=== PATIENT | female | born 1970 | race Two or more races ===

== ENCOUNTER 2024-04-21 06:16 | Emergency (ER) | payer MEDICAID ==
[~2024-04-21] VITALS: Ht 154.9 cm; Wt 82.0 kg
[2024-04-21] MEDS ORDERED: BACL10TA PO (08:00)
[2024-04-21] MEDS ORDERED: PRED20TA2 PO (08:00)
[2024-04-21] MEDS: HYDROcodone-ACET 5/325MG TAB PO ONE (08:04)
[2024-04-21] MEDS: KETOROLAC TROMETH 60MG/2ML VIAL IM ONE (08:05)
[2024-04-21 08:14] VITALS: BP 132/78; PULSE 76; RESP 17; TEMP 98.4; O2SAT 97
== END 2024-04-21 08:16 | disposition home or self-care (01) ==
LOC: ER 06:16
DX: M50.121 Cervical disc disorder at C4-C5 level with radiculopathy (principal); M50.123 Cervical disc disorder at C6-C7 level with radiculopathy; Z98.890 Other specified postprocedural states; Z88.5 Allergy status to narcotic agent; Z79.899 Other long term (current) drug therapy
CPT/HCPCS: 72040; 93005; 96372; 99283; J1885

== ENCOUNTER 2024-06-05 11:51 | Inpatient (IN) | payer MEDICAID, OTHER ==
[~2024-06-05] VITALS: Ht 154.9 cm; Wt 81.0 kg
[~2024-06-05 11:51] MED LIST: BACL10TA PO; PRED20TA2 PO
[2024-06-05] MEDS: ASPirin 325 MG TAB PO ONE (12:49)
[2024-06-05] MEDS: NITROGLYCERIN 0.4 MG SL TAB SL ONE (12:50)
[2024-06-05 13:13] LABS: Basophils # (auto) 0 10 ^3/uL (0-0.2); Basophils % (auto) 0.2 % (0.0-2.0); Eosinophils # (auto) 0 10 ^3/uL (0-0.8); Eosinophils % (auto) 0.5 % (0.0-7.0); Hemoglobin 15.6 g/dL (12.2-16.2); Lymphocytes # (auto) 1.5 10 ^3/uL (0.4-5.4); Lymphocytes % (auto) 20.6 % (10.0-50.0); Mean Corpuscular Hemoglobin 29.7 pg (28.0-32.0); Mean Corpuscular Hgb Conc. 35.6 g/dL (32.0-36.0); Mean Corpuscular Volume 83.6 fL (80.0-100.0); Monocytes # (auto) 0.3 10 ^3/uL (0-1.3); Monocytes % (auto) 4.2 % (0.0-12.0); Neutrophils # (auto) 5.4 10 ^3/uL (1.6-8.6); Neutrophils % (auto) 74.5 % (37.0-80.0); Nucleated Red Blood Cells % 1.7 %; Platelet Count (auto) 350 10^3/uL (140-450); Red Blood Cells 5.26 10^6/uL (4.0-5.20); Red Cell Distribution Width 13.6 % (11.8-14.3); White Blood Cell 7.3 10^3/uL (4.4-10.8)
[2024-06-05 13:31] LABS: Alanine Aminotransferase 24 U/L (7-40); Albumin 5.2 g/dL (3.2-4.8); Alkaline Phosphatase 121 U/L (46-116); Anion Gap 10 (5-15); Aspartate Aminotransferase 20 U/L (13-40); BUN/Creatinine Ratio 13.8 (10.0-20.0); Blood Urea Nitrogen 9 mg/dL (9-23); Calcium 10.2 mg/dL (8.7-10.4); Carbon Dioxide 23 mmol/L (20-30); Chloride 108 mmol/L (98-107); Glucose 112 mg/dL (74-106); Potassium 3.3 mmol/L (3.5-5.1); Sodium 141 mmol/L (136-145)
[2024-06-05 13:32] LABS: Bilirubin, Total 0.8 mg/dL (0.2-1.0); Total Protein 8.1 g/dL (5.7-8.2)
[2024-06-05 13:44] LABS: INR 1.04 (0.9-1.15); Partial Thromboplastin Time 27.8 SEC (24.5-34.5)
[2024-06-05 14:14] LABS: Urine Bacteria FEW /hpf (None Seen); Urine Blood Negative /uL (Negative); Urine Clarity Clear (Clear); Urine Color Colorless (Yellow); Urine Protein, UAD Negative (Negative); Urine Specific Gravity 1.003 (1.001-1.035); Urine Urobilinogen Normal (Negative); Urine WBC <1 /hpf (0 - 5)
[2024-06-05] MEDS ORDERED: DEXTROSE (50%) 50ML SYRG IV PRN (15:45)
[2024-06-05] MEDS ORDERED: NITROGLYCERIN 0.4 MG SL TAB SL PRN (15:45)
[2024-06-05] MEDS ORDERED: MORPHINE SULFATE INJ 2 MG/ml SYRG IV PRN (15:45)
[2024-06-05] MEDS ORDERED: DOCUSATE SOD 100 MG CAP PO PRN (15:45)
[2024-06-05] MEDS: POTASSIUM CHL 20 Meq TABLET PO ONE (16:14)
[2024-06-05] MEDS: ACCU-CHEK COMFORT CURVE STRIP VI SCH (17:00)
[2024-06-05] MEDS: InsuLIN REG 1unit/0.01ml Soln (100units/ml) SC SCH ×2 (18:02→21:48)
[2024-06-05 18:19] VITALS: RESP 16; O2SAT 98
[2024-06-05] MEDS: ONDANSETRON HCL 4 MG/2 ML VIAL IV PRN (18:23)
[2024-06-05] MEDS: SODIUM CHLOR 0.9% PF (SALINE LOCK) 10ML VIAL/SYR IV SCH (21:48)
[2024-06-05] MEDS: ATORVASTATIN 20 MG TAB PO SCH (21:50)
[2024-06-05] MEDS: ACETAMINOPHEN 325 MG TAB PO PRN (22:33)
[2024-06-05 22:48] VITALS: BP 109/57; PULSE 61; RESP 18; TEMP 97.8; O2SAT 99
[2024-06-05 22:51] VITALS: BP_SYST 105; BP_SYST 109; BP_DIAS 48; BP_DIAS 57; PULSE 60; PULSE 61; RESP 14; RESP 18; TEMP 97.4; TEMP 97.8; O2SAT 99
[2024-06-06] VITALS (8 sets, daily range): BP systolic 111–125; BP diastolic 55–74; PULSE 50–69; RESP 14–18; TEMP 97.6–98.1; O2SAT 97–99
[2024-06-06] MEDS ORDERED: HYDR-4069 PO (00:28)
[2024-06-06] MEDS ORDERED: FURO40TA4 PO (00:28)
[2024-06-06] MEDS ORDERED: CHOL20007 OR ×2 (00:28)
[2024-06-06] MEDS ORDERED: ATOR-47 PO (00:28)
[2024-06-06] MEDS ORDERED: METF-370 PO (00:28)
[2024-06-06] MEDS ORDERED: ASPI-543 PO (00:28)
[2024-06-06 06:04] LABS: Basophils # (auto) 0 10 ^3/uL (0-0.2); Basophils % (auto) 0.3 % (0.0-2.0); Eosinophils # (auto) 0.1 10 ^3/uL (0-0.8); Eosinophils % (auto) 1.8 % (0.0-7.0); Hemoglobin 13.7 g/dL (12.2-16.2); Lymphocytes # (auto) 2.1 10 ^3/uL (0.4-5.4); Lymphocytes % (auto) 27.9 % (10.0-50.0); Mean Corpuscular Hemoglobin 29.6 pg (28.0-32.0); Mean Corpuscular Hgb Conc. 35.1 g/dL (32.0-36.0); Mean Corpuscular Volume 84.4 fL (80.0-100.0); Monocytes # (auto) 0.6 10 ^3/uL (0-1.3); Monocytes % (auto) 7.3 % (0.0-12.0); Neutrophils # (auto) 4.7 10 ^3/uL (1.6-8.6); Neutrophils % (auto) 62.7 % (37.0-80.0); Platelet Count (auto) 297 10^3/uL (140-450); Red Blood Cells 4.62 10^6/uL (4.0-5.20); Red Cell Distribution Width 13.3 % (11.8-14.3); White Blood Cell 7.6 10^3/uL (4.4-10.8)
[2024-06-06 06:31] LABS: Alanine Aminotransferase 18 U/L (7-40); Albumin 4.4 g/dL (3.2-4.8); Alkaline Phosphatase 99 U/L (46-116); Anion Gap 8 (5-15); BUN/Creatinine Ratio 21.9 (10.0-20.0); Blood Urea Nitrogen 16 mg/dL (9-23); Calcium 9.5 mg/dL (8.7-10.4); Carbon Dioxide 27 mmol/L (20-30); Chloride 107 mmol/L (98-107); Glucose 100 mg/dL (74-106); Potassium 3.3 mmol/L (3.5-5.1); Sodium 142 mmol/L (136-145)
[2024-06-06 06:32] LABS: Aspartate Aminotransferase 14 U/L (13-40); Bilirubin, Total 0.7 mg/dL (0.2-1.0); Total Protein 6.8 g/dL (5.7-8.2)
[2024-06-06] MEDS: ASPirin 81 mg TAB PO SCH (08:41)
[2024-06-06] MEDS: POTASSIUM CHL 20 Meq TABLET PO ONE (08:41)
[2024-06-06 13:10] LABS: Cholesterol 196 mg/dL (< 200); HDL Cholesterol 57 mg/dL (40-59)
[2024-06-06 13:11] LABS: Triglycerides 130 mg/dL (< 150)
[2024-06-06 13:12] LABS: LDL Cholesterol 125 mg/dL (< 100)
[2024-06-06] MEDS: ENOXAPARIN SOD 40 MG/0.4 ML SYRINGE SC SCH (15:56)
[2024-06-06] MEDS: ERGOCALCIFEROL 50,000 UNIT(1.25MG) CAP PO SCH (15:56)
[2024-06-06] MEDS: INSULIN LANTUS (GLARGINE) 1 /0.01ml (100units/ml) SC SCH (21:21)
[2024-06-06 21:57] LABS: COVID19 ANTIGEN SOFIA FIA NEGATIVE (NEGATIVE); Rapid Influenza A Negative (Negative); Rapid Influenza B Negative (Negative)
[2024-06-07] VITALS (13 sets, daily range): BP systolic 104–133; BP diastolic 52–71; PULSE 53–62; RESP 16–18; TEMP 36.8; O2SAT 96–99
[2024-06-07 07:19] LABS: Basophils # (auto) 0 10 ^3/uL (0-0.2); Basophils % (auto) 0.4 % (0.0-2.0); Eosinophils # (auto) 0.2 10 ^3/uL (0-0.8); Eosinophils % (auto) 2.8 % (0.0-7.0); Hematocrit 39.3 % (36.0-46.0); Hemoglobin 13.5 g/dL (12.2-16.2); Lymphocytes % (auto) 37.4 % (10.0-50.0); Mean Corpuscular Hemoglobin 30.1 pg (28.0-32.0); Mean Corpuscular Hgb Conc. 34.3 g/dL (32.0-36.0); Mean Corpuscular Volume 87.6 fL (80.0-100.0); Monocytes # (auto) 0.6 10 ^3/uL (0-1.3); Monocytes % (auto) 7.8 % (0.0-12.0); Neutrophils # (auto) 4.1 10 ^3/uL (1.6-8.6); Neutrophils % (auto) 51.6 % (37.0-80.0); Nucleated Red Blood Cells % 0.2 %; Platelet Count (auto) 278 10^3/uL (140-450); Red Blood Cells 4.48 10^6/uL (4.0-5.20); White Blood Cell 7.9 10^3/uL (4.4-10.8)
[2024-06-07 07:22] LABS: Anion Gap 8 (5-15); Calcium 9.1 mg/dL (8.7-10.4); Carbon Dioxide 23 mmol/L (20-30); Chloride 106 mmol/L (98-107); Potassium 4.2 mmol/L (3.5-5.1); Sodium 137 mmol/L (136-145)
[2024-06-07 07:28] LABS: BUN/Creatinine Ratio 11.9 (10.0-20.0); Blood Urea Nitrogen 8 mg/dL (9-23); Glucose 91 mg/dL (74-106)
[2024-06-07] MEDS: HEPARIN IN NS 1000Units/500mL 1,500 ML ONE ×2 (07:29→08:49)
[2024-06-07] MEDS: IODIXANOL 320MG/ML 100ML BTL IV ONE ×2 (07:29→09:03)
[2024-06-07] MEDS: LIDOCAINE 2%HCL (LOCAL ANESTH.) INJ 10ml MDV ONE (08:49)
[2024-06-07] MEDS: IOHEXOL 350 MG/ML 100ML IJ ONE (08:49)
[2024-06-07] MEDS: VERAPAMIL 2.5MG/ML INJ 2ML VIAL IV ONE (08:59)
[2024-06-07] MEDS: ANGIOMAX 250 MG VIAL IV ONE (08:59)
[2024-06-07] MEDS: fentaNYL CITRATE 100 MCG/2 ML VL ONE (08:59)
[2024-06-07] MEDS: MIDAZOLAM HCL 2MG/2ML 2ml VIAL (1mg/ml) ONE (08:59)
[2024-06-07] MEDS: LIDOCAINE 2%HCL (LOCAL ANESTH.) INJ 20ML MDV ONE (09:00)
[2024-06-07] MEDS: SODIUM CHL 0.9% 0 ML ONE (09:00)
[2024-06-07] MEDS: HEPARIN SODIUM (PORCINE) 5000 UNITS/ML 1ML VIAL ONE (09:04)
[2024-06-07] MEDS: MORPHINE SULFATE INJ 2 MG/ml SYRG IV PRN (13:34)
== END 2024-06-07 16:37 | disposition home or self-care (01) | DRG 191 ==
LOC: ER 11:51 → TELE 15:42 → TELE-CENTR 22:48
PROVIDERS: ADMIT Internal Medicine Pulmonary Disease; ATTEND Internal Medicine Pulmonary Disease
PROC: 4A023N7 Measurement of Cardiac Sampling and Pressure, Left Heart, Percutaneous Approach (ICD-10-PCS; principal; 2024-06-07)
PROC: B211YZZ Fluoroscopy of Multiple Coronary Arteries using Other Contrast (ICD-10-PCS; 2024-06-07)
DX: I25.10 Atherosclerotic heart disease of native coronary artery without angina pectoris (principal); E11.9 Type 2 diabetes mellitus without complications; E55.9 Vitamin D deficiency, unspecified; E66.9 Obesity, unspecified; E78.5 Hyperlipidemia, unspecified; E87.6 Hypokalemia; I10 Essential (primary) hypertension; I25.2 Old myocardial infarction; Z90.710 Acquired absence of both cervix and uterus; Z82.49 Family history of ischemic heart disease and other diseases of the circulatory system; Z98.61 Coronary angioplasty status; Z79.899 Other long term (current) drug therapy; Z79.4 Long term (current) use of insulin; Z68.33 Body mass index [BMI] 33.0-33.9, adult
CPT/HCPCS: 36415; 71045; 80048; 80053; 80061; 81001; 82306; 82607; 82962; 83036; 83735; 83880; 84443; 84484; 85025; 85610; 85730; 86803; 87340; 87426; 87804; 93005; 93306; 99291; G0378; J1815; J2001; J2250; J2405; Q9967

== ENCOUNTER 2024-10-17 08:45 | Emergency (ER) | payer OTHER ==
[~2024-10-17] VITALS: Ht 154.9 cm; Wt 72.7 kg
[~2024-10-17 08:45] MED LIST changes: +ASPI-543 PO; +ATOR-47 PO; -BACL10TA PO; +CHOL20007 OR; +FURO40TA4 PO; +HYDR-4069 PO; +METF-370 PO; -PRED20TA2 PO
[2024-10-17] MEDS ORDERED: METH-1182 PO (09:37)
--- NOTE | 2024-10-17 09:37 | ED.PDOC ---
Back pain HPI HPI Comments 54-year-old female patient presents to the emergency room for lower back pain. Patient reports history of back pain with disc compression. Patient recently an MRI performed for primary care physician. Patient states that yesterday when she was getting up from breakfast she felt a pull in the lower back. Patient states that she has tenderness across the lower back as well as numbness and tingling down the right leg. Patient is able to ambulate. Patient denies loss of bowel or bladder control. Currently has [place] at home for pain. Patient took a [place] last night to help with pain. Chief Complaint: Back Pain Time Seen by MD: 09:01 Reviewed Notes: Nurses Notes, Medications Allergies: Coded Allergies: Codeine (Verified Allergy, Unknown, 04/21/24) Home Meds Active Scripts Ibuprofen (Ibuprofen) 600 Mg Tab, 1 TAB PO TID PRN for 30 Days, #90 TAB 0 Refills Prov:MARCOS JULIO [facility] 10/17/24 Methocarbamol (Methocarbamol) 750 Mg Tab, 750 MG PO Q8HP PRN for 30 Days, #90 TAB 0 Refills Prov:MARCOS JULIO [facility] 10/17/24 Reported Medications Cholecalciferol (VITAMIN D3) 2,000 Unit Tab, 5000 UNIT OR QWEEKLY, TAB 06/06/24 Cholecalciferol (VITAMIN D3) 2,000 Unit Tab, 5000 UNIT OR, TAB 06/06/24 Hydrocodone-Acetaminophen (Hydrocodone/Acetaminophen 7.5-325 mg) 1 Tab Tab, 1 TAB PO TID, TAB 06/06/24 Furosemide (Furosemide) 40 Mg Tab, 40 MG PO DAILY for 30 Days 06/06/24 Atorvastatin Calcium (ATORVASTATIN CALCIUM) 80 Mg Tab, 80 MG PO DAILY, TAB 06/06/24 Aspirin (Aspir-Low) 81 Mg Tab, 81 MG PO DAILY for 30 Days, MG 06/06/24 Metformin Hydrochloride (Metformin Hcl) 500 Mg Tab, 500 MG PO IBID for 30 Days, MG 06/06/24 Information Source: Patient Mode of Arrival: Wheelchair Past Medical History PAST MEDICAL HISTORY: DM, High Lipids, [place] Surgical History: Denies all surgeries COMPLIANCE PROFESSIONAL History: No Pertinent COMPLIANCE PROFESSIONAL History Family History Family History: Reviewed,noncontributory to illness Social History Smoker: Non-Smoker Alcohol: Denies ETOH Use Drugs: Denies Drug Use Lives In: Home Constitutional: denies: chills, diaphoresis, fatigue, fever, malaise, sweats, weakness, others EENTM: denies: blurred vision, double vision, ear bleeding, ear discharge, ear drainage, ear pain, ear ringing, eye pain, eye redness, hearing loss, mouth pain, mouth swelling, nasal discharge, nose bleeding, nose congestion, nose pain, photophobia, tearing, throat pain, throat swelling, voice changes, others Respiratory: denies: cough, hemoptysis, orthopnea, SOB at rest, shortness of breath, SOB with excertion, stridor, wheezing, others Cardiovascular: denies: chest pain, dizzy spells, diaphoresis, Dyspnea on exertion, edema, irregular heart beat, left arm pain, lightheadedness, palpitations, PND, syncope, others Gastrointestinal: denies: abdomen distended, abdominal pain, blood streaked bowels, constipated, diarrhea, dysphagia, difficulty swallowing, hematemesis, melena, nausea, poor appetite, poor fluid intake, rectal bleeding, rectal pain, vomiting, others Genitourinary: denies: abnormal vagina bleeding, burning, dyspareunia, dysuria, flank pain, frequency, hematuria, incontinence, pain, , vagina dischar ge, urgency, others Neurological: denies: dizziness, fainting, headache, left sided numbness, left sided weakness, numbness, paresthesia, pre-existing deficit, right sided numbness, right sided weakness, seizure, speech problems, tingling, tremors, weakness, others Musculoskeletal: reports: back pain (lower back pain) Integumetry: denies: bruises, change in color, change in hair/nails, dryness, laceration, lesions, lumps, rash, wounds, others Allergic/Immunocompromised: denies: Difficulty Healing, Frequent Infections, Hives, Itching, others Hematologic/Lymphatic: denies: anemia, blood clots, easy bleeding, easy bruising, swollen glands, others Endocrine: denies: excessive hunger, excessive sweating, excessive thirst, excessive urination, flushing, intolerance to cold, intolerance to heat, unexplained weight gain, unexplained weight loss, others Psychiatric: denies: anxiety, bipolar disorder, depression, hopeless, panic disorder, schizophrenia, sleepless, suicidal, others All Other Systems: Reviewed and Negative Physical Exam General Appearance: No Apparent Distress, Normal HEENT: Normal ENT Inspection, Pharynx Normal, TMs Normal Neck: Full Range of Motion, Non-Tender, Normal, Normal Inspection Respiratory: Chest Non-Tender, Lungs Clear, No Accessory Muscle Use, No Respiratory Distress, Normal Breath Sounds Cardiovascular: No Edema, No JVD, No Murmur, No Gallop, Normal Peripheral Pulses, Regular Rate/Rhythm Breast Exam: Deferred Gastrointestinal: No Organomegaly, Non Tender, No Pulsatile Mass, Normal Bowel Sounds, Soft Genitalia: Deferred Pelvic: Deferred Rectal: Deferred Extremities: No calf tenderness, Normal capillary refill, Normal inspection, Normal range of motion, Non-tender, No pedal edema Musculoskeletal : Location: Bilateral Extremity Location: Back (lower back pain radiating down the right leg. ) Apperance: Normal Neurologic: Alert, supervisor lace tearing II-XII nml as Tested, No Motor Deficits, Normal Affect, Normal Mood, No Sensory Deficits Cerebellar Function: Normal Reflexes: Normal Skin: Dry, Normal Color, Warm Lymphatic: No Adenopathy Was a procedure done? Was a procedure done?: No Back Pain Differential Dx Differential Diagnosis: Musculoskeletal Pain, Strain Other Differential Diagnosis lower back pain, back strain, sciatica X-Ray, Labs, Meds, VS Vital Signs Date Time Temp Pulse Resp B/P (MAP) Pulse Ox O2 Delivery O2 Flow Rate FiO2 10/17/24 09:46 97.7 100 16 130/86 (101) 98 97.7 10/17/24 08:50 97.7 100 16 130/86 (101) 98 Current Medications Medications (Trade) Dose Ordered Sig/Heather Route Start Time Stop Time Status Last Admin Ketorolac Tromethamine (Toradol Injection) 60 mg ONCE ONCE IM 10/17/24 09:45 10/17/24 09:46 DC 10/17/24 09:49 Methylprednisolone Sodium Succinate (Solu Medrol) 125 mg ONCE ONCE IM 10/17/24 09:45 10/17/24 09:46 DC 10/17/24 09:50 X-Ray, Labs, Meds, VS Comment On re-evaluation patient has symptomatic improvement. Patient is stable for discharge at this time. All test results and diagnostic imaging have been interpreted. All diagnostic findings, discharge care, and education instruction provided to the patient. Follow-up with PCP in 2-3 days Patient verbalized understanding, discharge instructions and agrees to treatment plan Vital signs are stable Patient is ambulatory Patient advised of which symptoms necessitate a return visit to the emergency room. Patient to return emergency room for any new worsening symptoms. Patient is aware that the purpose of this visit is for an acute medical emergency requiring emergent stabilization. Chronic conditions, including malignancies have not been ruled out. Patient is instructed to follow up with PCP as directed for continued care and workup. If unable to arrange follow up, patient is to return to the emergency room for reassessment. Patient was given verbal and written discharge instructions and acknowledges understanding Time of 1ST Reevaluation: :57 Reevaluation 1ST: Improved Patient Education/Counseling: Diagnosis, Treatment, Prognosis Family Education/Counseling: No Family Present Departure 1 Departure Time of Disposition: : Impression: Primary Impression: Back pain of lumbar region with sciatica Disposition: HOME / SELF CARE / HOMELESS Condition: Stable e-Prescriptions Ibuprofen (Ibuprofen) 600 Mg Tab 1 TAB PO TID PRN for 30 Days, #90 TAB 0 Refills Prov: MARCOS JULIO [facility] 10/17/24 Methocarbamol (Methocarbamol) 750 Mg Tab 750 MG PO Q8HP PRN for 30 Days, #90 TAB 0 Refills Prov: MARCOS JULIO 10/17/24 Discharged With: Self Critical Care Note Critical Care Time?: No Stability Stability form required: No Heart Score Heart Score: Heart Score Response (Comments) Value History N/A 0 EKG N/A 0 Age N/A 0 Risk Factors N/A 0 Troponin N/A 0 Total 0 MARCOS JULIO Oct 17, 2024 09:37
[2024-10-17] MEDS ORDERED: IBUP-1454 PO (09:42)
[2024-10-17 09:46] VITALS: BP 130/86; PULSE 100; RESP 16; TEMP 97.7; O2SAT 98
[2024-10-17] MEDS: KETOROLAC TROMETH 60MG/2ML VIAL IM ONE (09:49)
[2024-10-17] MEDS: methylPREDNISolone SOD SUCC 125 MG/2 ML VL IM ONE (09:50)
== END 2024-10-17 10:04 | disposition home or self-care (01) ==
LOC: ER 08:45
DX: M54.40 Lumbago with sciatica, unspecified side (principal); E11.9 Type 2 diabetes mellitus without complications; I10 Essential (primary) hypertension; E78.5 Hyperlipidemia, unspecified; Z88.5 Allergy status to narcotic agent; Z79.899 Other long term (current) drug therapy; Z79.82 Long term (current) use of aspirin
CPT/HCPCS: 96372; 99284; J1885; J2919

== ENCOUNTER 2025-09-03 15:06 | Emergency (ER) | payer OTHER ==
[~2025-09-03] VITALS: Ht 154.9 cm; Wt 72.9 kg
[~2025-09-03 15:06] MED LIST changes: +IBUP-1454 PO; +METH-1182 PO
[2025-09-03] MEDS ORDERED: methylPREDNISolone SOD SUCC 125 MG/2 ML VL IV ONE (16:00)
[2025-09-03] MEDS ORDERED: KETOROLAC TROMETH 30 MG/ML 1ML VIAL IV ONE (16:00)
[2025-09-03] MEDS: methylPREDNISolone SOD SUCC 125 MG/2 ML VL IM ONE (16:18)
[2025-09-03] MEDS: KETOROLAC TROMETH 60MG/2ML VIAL IM ONE (16:19)
[2025-09-03] MEDS ORDERED: CYCL-839 PO (16:22)
--- NOTE | 2025-09-03 16:23 | ED.PDOC ---
Back pain HPI HPI Comments Patient reports significant history of back complications. States she had spinal fusion of the lumbar spine in 2010. States she was getting out of bed today when she twisted and felt a sharp pain in the lower back. States he has been having bilateral sciatica type pain. States she can not move to the pain. She took a [place] 10 at home did not really help much. Says she does have spinal specialist in [facility], she also has pain management she sees up here. Denies any loss of bladder or bowel control no saddle paresthesia. No urinary discomfort. Patient denies any heavy lifting or excessive walking yesterday of the days prior. Chief Complaint: Back Pain Time Seen by MD: 15:31 Reviewed Notes: Nurses Notes Allergies: Coded Allergies: Codeine (Verified Allergy, Unknown, 04/21/24) Home Meds Active Scripts Ibuprofen (Ibuprofen) 600 Mg Tab, 1 TAB PO TID PRN for 30 Days, #90 TAB 0 Refills Prov:MARCOS JULIO [employer] 10/17/24 Methocarbamol (Methocarbamol) 750 Mg Tab, 750 MG PO Q8HP PRN for 30 Days, #90 TAB 0 Refills Prov:MARCOS JULIO [facility] 10/17/24 Reported Medications Cholecalciferol (VITAMIN D3) 2,000 Unit Tab, 5000 UNIT OR QWEEKLY, TAB 06/06/24 Cholecalciferol (VITAMIN D3) 2,000 Unit Tab, 5000 UNIT OR, TAB 06/06/24 Hydrocodone-Acetaminophen (Hydrocodone/Acetaminophen 7.5-325 mg) 1 Tab Tab, 1 TAB PO TID, TAB 06/06/24 Furosemide (Furosemide) 40 Mg Tab, 40 MG PO DAILY for 30 Days 06/06/24 Atorvastatin Calcium (ATORVASTATIN CALCIUM) 80 Mg Tab, 80 MG PO DAILY, TAB 06/06/24 Aspirin (Aspir-Low) 81 Mg Tab, 81 MG PO DAILY for 30 Days, MG 06/06/24 Metformin Hydrochloride (Metformin Hcl) 500 Mg Tab, 500 MG PO IBID for 30 Days, MG 06/06/24 Information Source: Patient Mode of Arrival: Ambulatory Past Medical History PAST MEDICAL HISTORY: DM, High Lipids, [place] Surgical History: Denies all surgeries VICE PRESIDENT OF SOFTWARE ENGINEERING History: No Pertinent VICE PRESIDENT OF SOFTWARE ENGINEERING History Family History Family History: Reviewed,noncontributory to illness Social History Smoker: Non-Smoker Alcohol: Denies ETOH Use Drugs: Denies Drug Use Lives In: Home Constitutional: denies: chills, diaphoresis, fatigue, fever, malaise, sweats, weakness, others EENTM: denies: blurred vision, double vision, ear bleeding, ear discharge, ear drainage, ear pain, ear ringing, eye pain, eye redness, hearing loss, mouth pain, mouth swelling, nasal discharge, nose bleeding, nose congestion, nose pain, photophobia, tearing, throat pain, throat swelling, voice changes, others Respiratory: denies: cough, hemoptysis, orthopnea, SOB at rest, shortness of breath, SOB with excertion, stridor, wheezing, others Cardiovascular: denies: chest pain, dizzy spells, diaphoresis, Dyspnea on exertion, edema, irregular heart beat, left arm pain, lightheadedness, palpitations, PND, syncope, others Gastrointestinal: denies: abdomen distended, abdominal pain, blood streaked bowels, constipated, diarrhea, dysphagia, difficulty swallowing, hematemesis, melena, nausea, poor appetite, poor fluid intake, rectal bleeding, rectal pain, vomiting, others Genitourinary: denies: abnormal vagina bleeding, burning, dyspareunia, dysuria, flank pain, frequency, hematuria, incontinence, pain, , vagina discharge, urgency, others Neurological: denies: dizziness, fainting, headache, left sided numbness, left sided weakness, numbness, paresthesia, pre-existing deficit, right sided numbness, right sided weakness, seizure, speech problems, tingling, tremors, weakness, others Musculoskeletal: reports: back pain Integumetry: denies: bruises, change in color, change in hair/nails, dryness, laceration, lesions, lumps, rash, wounds, others Allergic/Immunocompromised: denies: Difficulty Healing, Frequent Infections, Hives, Itching, others Physical Exam General Appearance: Moderate Distress, Normal HEENT: Normal ENT Inspection, Pharynx Normal, TMs Normal Neck: Full Range of Motion, Non-Tender, Normal, Normal Inspection Respiratory: Chest Non-Tender, Lungs Clear, No Accessory Muscle Use, No Respiratory Distress, Normal Breath Sounds Cardiovascular: No Edema, No JVD, No Murmur, No Gallop, Normal Peripheral Pulses, Regular Rate/Rhythm Breast Exam: Deferred Gastrointestinal: No Organomegaly, Non Tender, No Pulsatile Mass, Normal Bowel Sounds, Soft Genitalia: Deferred Pelvic: Deferred Rectal: Deferred Extremities: No calf tenderness, Normal capillary refill, Normal inspection, Normal range of motion, Non-tender, No pedal edema Musculoskeletal : Location: Bilateral Extremity Location: Back (Bilateral lumbar paraspinous muscles tender to palpation. Limited range motion due to pain. Unable to stand with the pain.) Apperance: Normal Neurologic: Alert, region manager II-XII nml as Tested, No Motor Deficits, Normal Affect, Normal Mood, No Sensory Deficits Cerebellar Function: Normal Reflexes: Normal Skin: Dry, Normal Color, Warm Lymphatic: No Adenopathy Was a procedure done? Was a procedure done?: No Back Pain Differential Dx Differential Diagnosis: Musculoskeletal Pain, Pyelonephritis X-Ray, Labs, Meds, VS Vital Signs Date Time Temp Pulse Resp B/P (MAP) Pulse Ox O2 Delivery O2 Flow Rate FiO2 09/03/25 15:38 Room Air* 0 21 09/03/25 15:28 84 20 97 Room Air 09/03/25 15:28 98.2 84 20 118/74 (89) 97 98.2 09/03/25 15:10 97.0 89 15 188/75 100 97.0 X-Ray, Labs, Meds, VS Comment Imaging was reviewed by this provider, there is no obvious pathological or acute disease process. Pending radiology review Labs were reviewed by this provider, no abnormalities Vital signs reviewed by this provider, clinically stable Time of 1ST Reevaluation: 16:22 Reevaluation 1ST: Unchanged Patient Education/Counseling: Diagnosis, Treatment, Need For Follow Up (Follow up with pain management next available appointment. Return to emergency department if symptoms worsen.) Family Education/Counseling: Diagnosis, Need For Follow Up SEPSIS Sepsis Screen Date sepsis recognized/suspect: Sep 03, 2025 Time Sepsis recognized/suspect: 1511 Recent Procedure: No On Antibiotic Therapy: No Respiratory Rate >20: No Heart Rate >90: No Temp<36 C (96.8 F) or >38.3 C: No SBP <90 or MAP <65 mmHG: No New Acute Mental Status Change: No Is the patient on CPAP, BIPAP,: No Physician Orders Methylprednisolone Sod Succ (Solu Medrol (09/03/25 16:00) Ketorolac Injection (Toradol Injection) (09/03/25 16:00) Vital Signs Date Time Temp Pulse Resp B/P (MAP) Pulse Ox O2 Delivery O2 Flow Rate FiO2 09/03/25 15:38 Room Air* 0 21 09/03/25 15:28 84 20 97 Room Air 09/03/25 15:28 98.2 84 20 118/74 (89) 97 98.2 09/03/25 15:10 97.0 89 15 188/75 100 97.0 Departure 1 Departure Time of Disposition: 16:16 Impression: Primary Impression: Lumbar radiculopathy Additional Impression: Back pain of lumbar region with sciatica Disposition: 01 HOME / SELF CARE / HOMELESS Condition: Stable e-Prescriptions Cyclobenzaprine Hcl (Cyclobenzaprine Hcl) 10 Mg Tab 10 MG PO TID, #30 TAB Prov: JOSE GAMING 09/03/25 Discharged With: Self Critical Care Note Critical Care Time?: No Stability Stability form required: No Heart Score Heart Score: Heart Score Response (Comments) Value History N/A 0 EKG N/A 0 Age N/A 0 Risk Factors N/A 0 Troponin N/A 0 Total 0 JOSE GAMING Sep 03, 2025 16:23
[2025-09-03] MEDS: HYDROmorphone HCL 2 MG/ML VL/or syr IM ONE (17:32)
[2025-09-03 18:51] LABS: Hematocrit 42.2 % (36.0-46.0); Hemoglobin 14.6 g/dL (12.2-16.2); Mean Corpuscular Hemoglobin 29.1 pg (28.0-32.0); Mean Corpuscular Volume 84.5 fL (80.0-100.0); Nucleated Red Blood Cells % 0.1 %
[2025-09-03] MEDS: BACLOFEN 10 MG TAB PO ONE (18:51)
[2025-09-03] MEDS: ONDANSETRON ODT 4 MG TAB PO ONE (18:51)
--- NOTE | 2025-09-03 18:59 | DVH ---
EXAM: XY LUMBAR SPINE 3 VIEW INDICATION: pain TECHNIQUE:: 3 views of the lumbar spine COMPARISON: None FINDINGS/IMPRESSION: No radiographic evidence of an acute osseous abnormality. There is no acute fracture, osseous malalignment, or aggressive focal osseous lesion. Fusion hardware at L4-L5 with trace retrolisthesis. Intervertebral disc spacer. Relative bony foraminal narrowing L5-S1. Gallbladder is surgically absent. Mild degenerative change of the left sacroiliac joint.
[2025-09-03 19:00] LABS: Potassium 3.8 mmol/L (3.5-5.1); Sodium 143 mmol/L (136-145)
[2025-09-03 19:01] LABS: Anion Gap 15 (5-15); Calcium 10.0 mg/dL (8.7-10.4); Carbon Dioxide 21 mmol/L (20-31)
[2025-09-03 19:06] LABS: BUN/Creatinine Ratio 9.4 (10.0-20.0)
[2025-09-03 19:11] LABS: Blood Urea Nitrogen 8 mg/dL (9-23); Chloride 107 mmol/L (98-107); Glucose 177 mg/dL (74-106)
[2025-09-03 20:36] VITALS: TEMP 98.4; O2SAT 97
[2025-09-03 20:48] VITALS: BP 140/91; PULSE 85; RESP 16
[2025-09-03] MEDS: MORPHINE SULFATE 4 MG/ML SYR/VIAL IV ONE (20:48)
[2025-09-03] MEDS: ONDANSETRON HCL 4 MG/2 ML VIAL IV ONE (20:48)
== END 2025-09-03 21:00 | disposition home or self-care (01) ==
LOC: ER 15:06
DX: M54.16 Radiculopathy, lumbar region (principal); M54.40 Lumbago with sciatica, unspecified side; E11.9 Type 2 diabetes mellitus without complications; Z88.5 Allergy status to narcotic agent; Z79.899 Other long term (current) drug therapy; Z90.49 Acquired absence of other specified parts of digestive tract
CPT/HCPCS: 36415; 72100; 80048; 85025; 96372; 96374; 96375; 99285; J1171; J2270; J2405; Q0162; J1885